=== PATIENT | female | born 1960 | race African-American/Black ===

== ENCOUNTER 2017-03-03 14:15 | Emergency (ER) | payer OTHER ==
[2017-03-03 15:03] VITALS: BP 125/67
[2017-03-03] MEDS ORDERED: Ketorolac INJ* 60 MG/2 ML VIAL IM ONE (16:01)
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
== END 2017-03-03 17:25 | disposition home or self-care (01) ==
LOC: UCEAST 14:15
DX: S13.9XXA Sprain of joints and ligaments of unspecified parts of neck, initial encounter (principal); S23.3XXA Sprain of ligaments of thoracic spine, initial encounter; V43.62XA Car passenger injured in collision with other type car in traffic accident, initial encounter; Y93.89 Activity, other specified; Y92.410 Unspecified street and highway as the place of occurrence of the external cause; M47.812 Spondylosis without myelopathy or radiculopathy, cervical region; Z87.891 Personal history of nicotine dependence
CPT/HCPCS: 72050; 72070; 96372; 99212; G0463; J1885

== ENCOUNTER 2017-04-24 23:39 | Emergency (ER) | payer OTHER ==
[2017-04-25 00:41] LABS: Urine Bacteria 1+ (Absent); Urine Bilirubin Negative (Negative); Urine Glucose Negative (Negative); Urine Nitrite Negative (Negative)
[2017-04-25] MEDS ORDERED: NS 0.9% 1000 ML* 1,000 ML IV ONE (00:58)
[2017-04-25 01:43] LABS: Hematocrit 35 % (35-47); Hemoglobin 11.2 g/dl (12.0-16.0); Mean Corpuscular HGB Conc 32 g/dl (31-36); Mean Corpuscular Hemoglobin 24 pg (27-31); Mean Corpuscular Volume 73 fL (80-97); Mean Platelet Volume 9 um3 (7.4-10.4); Red Blood Count 4.75 10^6/ul (4.0-5.4); Red Cell Distribution Width 17 % (10.5-15); White Blood Count 10.1 10^3/ul (3.5-10.8)
[2017-04-25 01:44] LABS: Add Diff/Slide Review? Slide Review Added; Comments Flag Yes
[2017-04-25 01:59] LABS: Albumin 3.7 g/dL (3.2-5.2); BUN/Creatinine Ratio 11.7 (8-20); Calcium 9.2 mg/dL (8.6-10.3); EGFR African American 100.1 (>60); EGFR Non-African American 77.8 (>60); Globulin 3.6 g/dL (2-4); Potassium 3.5 mmol/L (3.5-5.0); Total Bilirubin 0.3 mg/dL (0.2-1.0); Total Protein 7.3 g/dL (6.4-8.9)
[2017-04-25 02:01] LABS: Troponin I 0.01 ng/mL (<0.04)
[2017-04-25] MEDS ORDERED: Levofloxacin TAB* 500 MG PO ONE (03:30)
[2017-04-25 03:51] VITALS: BP 112/67
--- NOTE | 2017-04-25 04:41 | ED ---
Carito Molina Rebecca, scribed for Audie Dave on 04/25/17 at 0052 . Abdominal Pain/Female - HPI Summary HPI Summary: Pt is a 56 y/o F who presents to ED c/o abdominal pain. Sx began about 3 days ago and has been constant since onset, worsening tonight. Pain is in the LLQ with radiation to the L flank and is currently severe, ranked 8/10. Sx aggravated by movement and urination, alleviated by nothing. Pt additionally notes that she has not had her period in 2 months. Denies N/V, hematuria, increased urinary frequency. No PMHx kidney stones. - History of Current Complaint Chief Complaint: EDFlankPain Stated Complaint: ABD PAIN Time Seen by Provider: 04/25/17 00:41 Hx Obtained From: Patient Hx Last Menstrual Period: 02/25/17 ronen Onset/Duration: Lasting Days - 3 days, Still Present Timing: Constant Severity Currently: Moderate Pain Intensity: 6 Pain Scale Used: 0-10 Numeric Location: Discrete At: LLQ, Flank - Left Aggravating Factor(s): Movement, Other: - Urination Alleviating Factor(s): Nothing Associated Signs and Symptoms: Positive: Other: - No period in 2 months. Negative: Urinary Symptoms, Nausea, Vomiting Allergies/Adverse Reactions: Allergies Allergy/AdvReac Type Severity Reaction Status Date / Time Fish Allergy Allergy Severe Anaphylatic Verified 03/03/17 14:52 Shock Latex AdvReac Intermediate Rash Verified 03/03/17 14:52 PMH/Surg Hx/FS Hx/Imm Hx Endocrine/Hematology History: Denies: Hx Diabetes, Hx Thyroid Disease Cardiovascular History: Denies: Hx Hypertension, Hx Pacemaker/ICD Respiratory History: Reports: Hx Asthma, Hx Seasonal Allergies, Hx Sleep Apnea - current CPAP user Denies: Hx Chronic Obstructive Pulmonary Disease (COPD) GI History: Denies: Hx Ulcer Musculoskeletal History: Reports: Hx Back Problems - Stenosis lower back Sensory History: Reports: Hx Contacts or Glasses Denies: Hx Hearing Aid Opthamlomology History: Reports: Hx Contacts or Glasses Neurological History: Denies: Hx Headaches Psychiatric History: Reports: Hx Depression Denies: Hx Panic Disorder - Surgical History Surgery Procedure, Year, and Place: ACDF- ANTERIOR CERVICAL DISC FUSION -2006. -1993. Hemorrhoidectomy - 2004. STONES REMOVED FROM GALLBLADDER Infectious Disease History: Yes Infectious Disease History: Reports: Hx of Known/Suspected MRSA Denies: Hx Clostridium Difficile, Hx Hepatitis, Hx Human Immunodeficiency Virus (HIV), Hx Shingles, Hx Tuberculosis, Hx Known/Suspected VRE, Hx Known/ Suspected VRSA, History Other Infectious Disease, Traveled Outside the [place] in Last 30 Days - Family History Known Family History: Positive: Hypertension, Diabetes - Social History Alcohol Use: Rare Substance Use Type: Reports: None Hx Tobacco Use: No Smoking Status (MU): Former Smoker Review of Systems Positive: Abdominal Pain. Negative: Vomiting, Nausea Positive: other - No period in 2 months. Negative: frequency, hematuria All Other Systems Reviewed And Are Negative: Yes Physical Exam - Summary Physical Exam Summary: Appearance: Well appearing, no pain distress Skin: warm, dry, reflects adequate perfusion Head/face: normal Eyes: EOMI, ROYA ENT: normal Neck: supple, non-tender Respiratory: CTA, breath sounds present Cardiovascular: RRR, pulses symmetrical Abdomen: LUQ and LLQ tenderness, soft Bowel: present Musculoskeletal: normal, strength/ROM intact Neuro: normal, sensory motor intact, A&Ox3 Triage Information Reviewed: Yes Vital Signs On Initial Exam: Initial Vitals Temp Pulse Resp BP Pulse Ox 97.3 F 93 20 123/70 100 04/24/17 23:40 04/24/17 23:40 04/24/17 23:40 04/24/17 23:40 04/24/17 23:40 Vital Signs Reviewed: Yes - [place] Coma Scale Coma Scale Total: 15 Diagnostics - Vital Signs Vital Signs Temp Pulse Resp BP Pulse Ox 04/24/17 23:40 97.3 F 93 20 123/70 100 - Laboratory Lab Results: Lab Results 04/25/17 Range/Units 00:21 Urine Color Yellow Urine Appearance Cloudy Urine pH 6.0 (5-9) Ur Specific [place] 1.014 (1.010-1.030) Urine Protein Negative (Negative) Urine Ketones Negative (Negative) Urine Blood Negative (Negative) Urine Nitrate Negative (Negative) Urine Bilirubin Negative (Negative) Urine Urobilinogen Negative (Negative) Ur Leukocyte Esterase 2+ H (Negative) Urine WBC (Auto) 3+(>20/hpf) H (Absent) Urine RBC (Auto) Absent (Absent) Ur Squamous Epith Cells Present H (Absent) Urine Bacteria 1+ H (Absent) Urine Glucose Negative (Negative) Result Diagrams: 11/02/17 01:12 04/25/17 01:12 Lab Statement: Any lab studies that have been ordered have been reviewed, and results considered in the medical decision making process. - Radiology CXR Xray Interpretation: No Acute Changes Radiology Interpretation Completed By: ED Physician - CT CT Abd/Pel CT Interpretation: No Acute Changes - No localizing signs for acute pathology. ED physician reviewed radiology report and agrees. CT Interpretation Completed By: Radiologist - EKG 0238 Cardiac Rate: NL - 75 bpm EKG Rhythm: Sinus Rhythm EKG Interpretation: No acute changes Re-Evaluation - Re-Evaluation First Eval Re-Evaluation Time: 03:31 Comment: Discussed results and D/C plan with the pt. Abdominal Pain Fem Course/Dx - Course Course Of Treatment: Pt is a 56 y/o F who presents to ED c/o constant LLQ and L flank pain for about 3 days ago, worsening tonight. Pain is currently severe, ranked 8/10. Sx aggravated by movement and urination. Pt additionally notes that she has not had her period in 2 months. Denies N/V, hematuria, increased urinary frequency. No PMHx kidney stones. CT Abd/pel and CXR reveal no acute findings. EKG is sinus rhythm with no acute changes. UA positive for UTI. In the ED course, pt was given Levaquin and fluids. She will be D/C to home with Dx of UTI with Rx for Levaquin and a follow up with her PCP. She is agreeable with this plan. Allergies noted. Pt medications reviewed. - Diagnoses Differential Diagnosis: Positive: Bowel Obstruction, Diverticulitis, Peptic Ulcer Disease, Renal Colic, Urinary Tract Infection Provider Diagnoses: UTI (urinary tract infection) Discharge - Discharge Plan Condition: Stable Disposition: HOME Prescriptions: Levofloxacin TAB* [Levaquin TAB*] 500 mg PO DAILY #5 tab Patient Education Materials: Urinary Tract Infection in Women (ED) Referrals: Charles Castillo MD [Primary Care Provider] - 3 Days Additional Instructions: RETURN TO ED FOR ANY RETURNING OR WORSENING SYMPTOMS. The documentation as recorded by the Carito patel Rebecca accurately reflects the service I personally performed and the decisions made by , Audie Dave.
--- NOTE | 2017-04-25 08:08 | RAD ---
INDICATION: Chest and abdominal pain COMPARISON: September 15, 2015 TECHNIQUE: PA and lateral dual-energy views were obtained. FINDINGS: Bones/Soft Tissues: There are no acute bony findings. Cardiomediastinal: The cardiomediastinal silhouette is normal. Lungs: There are no infiltrates. Pleura: There are no pleural effusions. Other: There are sutures from midline laparotomy. IMPRESSION: NO ACTIVE DISEASE.
--- NOTE | 2017-04-25 08:31 | RAD ---
CLINICAL HISTORY: Left abdominal and left flank pain COMPARISON: None TECHNIQUE: Noncontrast CT examination of the abdomen and pelvis from the lung bases through the initial tuberosities. FINDINGS: VISUALIZED LUNG BASES: The visualized lung bases are grossly clear. There is no pleural effusion. ABDOMEN AND PELVIS: Evaluation of the solid organs and vasculature is limited without intravenous contrast. The liver, spleen, pancreas and adrenal glands are grossly normal in appearance. The gallbladder appears to be surgically absent and there is surgical material overlying the right upper quadrant. The kidneys are normal in appearance without focal mass, calcification or signs of hydronephrosis. The oral contrast has progressed as far as the base of the cecum which limits evaluation of the colon. The small and large bowel are not distended. The appendix is top normal measuring just under 8 mm in diameter but is otherwise filled with gas and does not exhibit any periappendiceal inflammatory change. There is no gross retroperitoneal or mesenteric lymphadenopathy. The left adnexa there is a soft tissue structure measuring 3.7 cm in greatest axial dimension which is most likely the left ovary. The abdominal aorta and iliac arteries are normal in course and diameter. Degenerative changes include multilevel loss of intervertebral disc height involving the lower thoracic and lumbar spine.There are no sinister bone lesions. IMPRESSION: 1. No renal calculi or signs of urinary obstruction. 2. The appendix is top normal but otherwise does not exhibit any signs of acute inflammatory change. 3. In the left adnexa there is a nearly 4 cm soft tissue density structure most likely the left ovary. Please correlate to the patient's menstrual status. If clinically warranted this can be further characterized with pelvic ultrasound. 4. Additional chronic and postsurgical changes described in body the report.
== END 2017-04-25 03:37 | disposition home or self-care (01) ==
LOC: ED 23:39
DX: N39.0 Urinary tract infection, site not specified (principal); R10.32 Left lower quadrant pain; Z87.891 Personal history of nicotine dependence
CPT/HCPCS: 36415; 71020; 74176; 80053; 81003; 81015; 83605; 83690; 84484; 85025; 85610; 85730; 87077; 87086; 93005; 96360; 99282

== ENCOUNTER 2019-08-05 17:54 | Emergency (ER) | payer OTHER ==
[2019-08-05 18:25] VITALS: BP 142/82
[2019-08-05] MEDS ORDERED: Ketorolac INJ* 30 MG/ML 1 ML VIAL IM ONE (19:56)
--- NOTE | 2019-08-05 19:59 | UC ---
Shoulder Pain HPI - HPI Summary HPI Summary: 58-year-old female who complains of right shoulder pain upon awakening about 2 days ago stating that she thinks she slept wrong. Continued right shoulder pain since then. She denies any other symptoms of illness. - History of Current Complaint Chief Complaint: UCUpperExtremity Stated Complaint: R ARM PAIN Time Seen by Provider: 08/05/19 19:49 Hx Obtained From: Patient Hx Last Menstrual Period: 02/25/17 ronen ?: No Onset/Duration: Gradual Onset Timing: Constant Severity Initially: Mild Severity Currently: Moderate Location Of Pain: Is Discrete @ - Right anterior shoulder. Pain Intensity: 8 Character: Sharp - Case usually sharp when she moves her arm just the right way. , Dull, Aching Aggravating Factor(s): Movement, Lifting Alleviating Factor(s): Rest Associated Signs And Symptoms: Positive: Negative - Allergies/Home Medications Allergies/Adverse Reactions: Allergies Allergy/AdvReac Type Severity Reaction Status Date / Time fish derived Allergy Anaphylatic Verified 08/05/19 18:26 Shock latex Allergy Rash Verified 08/05/19 18:26 Home Medications: Home Medications Naproxen Sodium [Aleve] 440 mg PO Q6HR 08/05/19 [History Confirmed 08/05/19] PMH/Surg Hx/FS Hx/Imm Hx Previously Healthy: Yes Respiratory History: Asthma - Surgical History Surgical History: Yes Surgery Procedure, Year, and Place: ACDF- ANTERIOR CERVICAL DISC FUSION -2006. -1993. Hemorrhoidectomy - 2004. STONES REMOVED FROM GALLBLADDER - Family History Known Family History: Positive: Hypertension, Diabetes - Social History Alcohol Use: Rare Substance Use Type: None Smoking Status (MU): Former Smoker Review of Systems All Other Systems Reviewed And Are Negative: Yes Musculoskeletal: Positive: Other: - Pain anterior right shoulder which is sharp and shooting with movement. Is Patient Immunocompromised?: No Physical Exam Triage Information Reviewed: Yes Appearance: Well-Appearing, No Pain Distress, Well-Nourished Vital Signs: Initial Vital Signs Temp 97.9 F 08/05/19 18:16 Pulse 97 08/05/19 18:16 Resp 16 08/05/19 18:16 BP 142/82 08/05/19 18:16 Pulse Ox 98 08/05/19 18:16 Vital Signs Reviewed: Yes Eyes: Positive: Conjunctiva Clear Musculoskeletal: Positive: Strength Intact, ROM Intact - Patient has range of motion however she doesn't slowly because of pain., Other: - Pain on palpation to the anterior right shoulder. No bruising or erythema swelling or deformity is noted. Neurological: Positive: Alert, Muscle Tone Normal Psychological Exam: Normal Skin Exam: Normal Shoulder Course/Dx - Course Course Of Treatment: Shoulder x-ray: There appears to be a calcific tendinitis present. Patient was given an injection of Toradol 30 mg IM here. - Differential Dx/Diagnosis Provider Diagnosis: Calcific tendonitis Discharge ED - Sign-Out/Discharge Documenting (check all that apply): Patient Departure All imaging exams completed and their final reports reviewed: No - Discharge Plan Condition: Fair Disposition: HOME Patient Education Materials: Calcific Tendinitis (ED) Forms: *Work Release Referrals: Charles Castillo MD [Primary Care Provider] - Maycol Mena MD [Medical Doctor] - Additional Instructions: Continue to apply heat intermittently to the sore area, continue to take ibuprofen every 8 hours with food. Definite follow-up with the orthopedist on Saturday or Saturday if no improvement. Avoid movements that cause pain. - Billing Disposition and Condition Condition: FAIR Disposition: Home
--- NOTE | 2019-08-06 11:08 | UC ---
- Progress Note Progress Note: wet read correct Course/Dx - Diagnoses Provider Diagnoses: Calcific tendonitis Discharge ED - Sign-Out/Discharge Documenting (check all that apply): Post-Discharge Follow Up All imaging exams completed and their final reports reviewed: Yes - Discharge Plan Condition: Fair Disposition: HOME Patient Education Materials: Calcific Tendinitis (ED) Forms: *Work Release Referrals: Charles Castillo MD [Primary Care Provider] - Maycol Mena MD [Medical Doctor] - Additional Instructions: Continue to apply heat intermittently to the sore area, continue to take ibuprofen every 8 hours with food. Definite follow-up with the orthopedist on Saturday or Saturday if no improvement. Avoid movements that cause pain. - Billing Disposition and Condition Condition: FAIR Disposition: Home
== END 2019-08-05 20:20 | disposition home or self-care (01) ==
LOC: UCEAST 17:54
DX: M75.31 Calcific tendinitis of right shoulder (principal); J45.909 Unspecified asthma, uncomplicated; Z91.040 Latex allergy status; Z91.013 Allergy to seafood; Z87.891 Personal history of nicotine dependence
CPT/HCPCS: 96372; 99211; G0463; J1885